=== PATIENT | female | born 1930 | race Caucasian/White ===

== ENCOUNTER → 2016-03-09 | Outpatient (CLI) | payer OTHER ==
[~2016-03-09] MED LIST: ACETAMINOPHEN-H1 TA2 PO; ALENDRONATE SOD70 M1 PO; ANTI-DIARRHEA2 MG PO; ASPIRIN81 M1 PO; BACTRIM DS 8001 TA1 PO; BONIVA150 MG PO; BYETTA10 MCG/0.0 SC; BYETTA5MCG SC; CEFUROXIME AXE250 MG PO; CIPROFLOXACIN500 MG PO; COLCHICINE0.6 MG PO; COUMADIN4 M2 PO; COUMADIN6 M2 PO; Coumadin5 MG PO; DILTIAZEM HYDR180 M2 PO; DIPHENHYDR12.5 MG/5 PO; DOXYCYCLINE100 MG PO; DUONEB 3 MG/3 ML3 M1 INH; ECOTRIN81 M1 PO; ENOXAPARIN80 MG/0.2 SC; GABAPENTIN300 MG PO; GERI-LANTA 355355 ML PO; GLIMEPIRIDE1 MG PO; GLIPIZIDE PO; GUAFENESIN400 MG PO; Glimepiride1 MG PO; HUMALOG100 U/ML SC; IMODIUM2 MG PO; INDOCIN25 MG PO; LASIX20 MG PO; LASIX40 MG PO; LISINOPRIL2.5 MG PO; MAPAP325 MG PO; MELOXICAM15 MG PO; METFO PO; MICRO K10 MEQ PO; MILK OF MA400 MG/5 M PO; MIRALAX POWDER17 G1 PO; MOBIC15 MG PO; MULTI-DAY VITA1 EACH PO; MULTIPLE VITAMI1 CAP PO; MULTIVITAMIN FO1 CAP PO; NEURONTIN300 MG PO; NEXIUM40 MG PO; NITROFURANTOIN100 M3 PO; NORTRIPTYLINE10 MG PO; NOVOLOG 70/30 M10 ML SC; NOVOLOG FLEX100 U/ML SC; NOVOLOG1 UNIT/0.0; NOVOLOG10 ML SC; NOVOLOG100 U/ML; NOVOLOG100 U/ML SC; OMEPRAZOLE20 M2 PO; OSCAL,OYSTER S500 MG PO; OXYGEN NAS; OYSTER CALCIUM1 TA2 PO; OYSTER SHELL 51 EACH PO; OYSTER SHELL C1 EACH PO; Oscal,Oyster S500 MG PO; POLYETHYLENE GL1 PO7 PO; POTASSIUM; PRILOSEC40 MG PO; PRINIVIL2.5 MG PO; Q-DRYL12.5 MG/5 PO; ROBITUSSIN100 MG/5 M PO; SIMVASTATIN20 MG PO; SIMVASTATIN40 MG PO; SYNTHROID,LEV125 MCG PO; SYNTHROID,LEV175 MCG PO; SYNTHROID,LEV200 MCG PO; SYNTHROID,LEVO25 MCG PO; SYNTHROID0.15 MG PO; SYNTHROID25 MCG PO; Synthroid,Lev200 MCG PO; THERAGRAN1 TA2 PO; TYLENOL325 M1 PO; TYLENOL325 M2 PO; VICTOZA 3-PAK6 MG/ML SC; VICTOZA6 MG/ML SC; VITAMIN D32000 I1 PO; VITAMIN D32000 UNI1 PO; WELCHOL3.75 GM/Pa PO; ZOCOR20 MG PO; ZOCOR40 MG PO
== END | disposition home or self-care (01) ==
LOC: CARD 15:57
DX: I48.2 Chronic atrial fibrillation (principal)

== ENCOUNTER → 2018-05-29 | Outpatient (CLI) | payer MEDICARE | END | disposition home or self-care (01) | LOC: ORTHO 01:09 | DX: M17.11 Unilateral primary osteoarthritis, right knee (principal); M25.461 Effusion, right knee ==

== ENCOUNTER 2019-02-09 15:29 | Inpatient (IN) | payer MEDICARE, OTHER ==
[~2019-02-09] VITALS: Ht 160 cm; Wt 81.6 kg
[2019-02-09 15:30] VITALS: BP 82/36
[2019-02-09 15:39] VITALS: BP 90/60
[2019-02-09 16:15] LABS: BILIRUBIN NEGATIVE (NEGATIVE); BLOOD NEGATIVE (NEGATIVE); CLARITY CLEAR (CLEAR); COLOR YELLOW (YELLOW); GLUCOSE NEGATIVE (NEGATIVE); KETONE NEGATIVE (NEGATIVE); LEUKO ESTERASE NEGATIVE (NEGATIVE); NITRITE NEGATIVE (NEGATIVE); PH 5.5 (5.0-9.0); UROBILINOGEN 0.2 E.U./dl (0.2-1.0)
[2019-02-09 16:15] LABS: HEMATOCRIT 33.9 % (37.0-47.0); MEAN CELL VOLUME 90.6 fl (81.0-99.0); MEAN CORPUSCULAR HGB 29.4 pg (27.0-31.0); MEAN CORPUSCULAR HGB CONC 32.4 g/dl (33.0-37.0); MEAN PLATELET VOLUME 9.5 fl (9.6-12.3); PLATELET COUNT AUTOMATED 344 10*3/uL (130-400); RED BLOOD COUNT 3.74 10*6/uL (4.10-5.10); RED CELL DISTRI WIDTH 14.4 % (0-14.5); WHITE BLOOD COUNT 18.8 10*3/uL (4.8-10.8)
[2019-02-09 16:24] LABS: BACTERIA TRACE
[2019-02-09 16:32] LABS: ALBUMIN 3.1 gm/dl (3.1-4.5); CREATININE 2.23 mg/dL (0.55-1.02); POTASSIUM 4.3 mmol/L (3.5-5.1); TOTAL PROTEIN 6.2 gm/dL (6.4-8.2)
[2019-02-09 16:33] LABS: INTERNATIONAL NORM RATIO 5.4 (2.0-3.5)
--- NOTE | 2019-02-09 16:33 | NUR ---
lab calls and pts inr is 5.4. provider made aware.
[2019-02-09 16:46] LABS: PLATELET SUFFICIENCY NORMAL (NORMAL); TOTAL CELLS COUNTED 100 #CELLS
[2019-02-09 17:03] VITALS: BP 89/45
[2019-02-09 18:41] VITALS: BP 101/44
--- NOTE | 2019-02-09 18:41 | NUR ---
PT RESTING IN BED. IN NO ACUTE DISTRESS. SIDERAILS UP X2
--- NOTE | 2019-02-09 20:10 | NUR ---
Time: 2009 A 88 year old FEMALE admitted to 5E under services of KAIN STARR DO. Pt. arrived via bed from ER. Chief complaint: ARF, DIVERTICULITIS, ELEVATED INR. EMANI BURDEN
[2019-02-09 20:20] VITALS: BP 130/95
[2019-02-09] MEDS ORDERED: DILTIAZEM 24HR300 MG PO (22:26)
[2019-02-09] MEDS ORDERED: PEPCID20 MG PO (22:27)
[2019-02-09] MEDS ORDERED: FENOFIBRATE160 MG PO (22:28)
[2019-02-09] MEDS ORDERED: NEURONTIN100 MG PO (22:29)
[2019-02-09] MEDS ORDERED: LEVOTHYROXINE150 MCG PO (22:30)
[2019-02-09] MEDS ORDERED: PANTOPRAZOLE SO40 MG PO (22:39)
[2019-02-09] MEDS ORDERED: COUMADIN3 M1 PO (22:43)
[2019-02-10] VITALS: BP 126/91
[2019-02-10 06:45] LABS: BASO % 0.2 % (0.0-1.0); EOS # 0.2 10*3/uL (0.0-0.4); EOS % 1.5 % (1.0-4.0); HEMATOCRIT 33.5 % (37.0-47.0); HEMOGLOBIN 10.7 g/dl (12.0-16.0); LYMPH # 1.8 10*3/uL (1.3-4.4); LYMPH % 14.6 % (27.0-41.0); MEAN CELL VOLUME 88.9 fl (81.0-99.0); MEAN CORPUSCULAR HGB 28.4 pg (27.0-31.0); MEAN CORPUSCULAR HGB CONC 31.9 g/dl (33.0-37.0); MEAN PLATELET VOLUME 9.4 fl (9.6-12.3); MONO # 0.8 10*3/uL (0.1-1.0); MONO % 6.5 % (3.0-9.0); NEUT # 9.4 10*3/uL (2.3-7.9); NEUT % 76.8 % (47.0-73.0); PLATELET COUNT AUTOMATED 347 10*3/uL (130-400); RED BLOOD COUNT 3.77 10*6/uL (4.10-5.10); RED CELL DISTRI WIDTH 14.4 % (0-14.5); WHITE BLOOD COUNT 12.3 10*3/uL (4.8-10.8)
[2019-02-10 06:50] LABS: ACT PARTIAL THROMBO TIME 64.9 SECONDS (20.0-32.1); INTERNATIONAL NORM RATIO 4.1 (2.0-3.5)
[2019-02-10 07:01] LABS: ALBUMIN 2.7 gm/dl (3.1-4.5); CREATININE 1.81 mg/dL (0.55-1.02); FREE T4 1.46 ng/dl (0.76-1.46); PHOSPHOROUS 2.7 mg/dL (2.5-4.9); POTASSIUM 3.9 mmol/L (3.5-5.1); TOTAL PROTEIN 5.9 gm/dL (6.4-8.2)
[2019-02-10 07:06] LABS: THYROID STIM HORMONE (HS) 0.825 uIU/ml (0.358-4.75)
[2019-02-10 08:00] VITALS: BP 98/54
[2019-02-10 08:13] LABS: VITAMIN D, 25-HYDROXY 46.6 ng/mL (30-100)
[2019-02-10 12:00] VITALS: BP 90/42
--- NOTE | 2019-02-10 13:59 | NUR ---
NOTIFIED REGARDING LOW BP. PT ASYMPTOMATIC.
[2019-02-10 16:11] VITALS: BP 104/85
--- NOTE | 2019-02-10 19:20 | NUR ---
24 HR CHART CHECK COMPLETE
[2019-02-10 20:00] VITALS: BP 128/67
[2019-02-11] VITALS: BP 131/72
[2019-02-11 08:00] VITALS: BP 103/48
[2019-02-11 08:47] LABS: BASO % 0.3 % (0.0-1.0); EOS # 0.2 10*3/uL (0.0-0.4); EOS % 3.1 % (1.0-4.0); HEMOGLOBIN 10.5 g/dl (12.0-16.0); LYMPH # 1.9 10*3/uL (1.3-4.4); LYMPH % 27.6 % (27.0-41.0); MEAN CELL VOLUME 90.4 fl (81.0-99.0); MEAN CORPUSCULAR HGB 28.8 pg (27.0-31.0); MEAN CORPUSCULAR HGB CONC 31.8 g/dl (33.0-37.0); MEAN PLATELET VOLUME 9.4 fl (9.6-12.3); MONO # 0.8 10*3/uL (0.1-1.0); MONO % 11.3 % (3.0-9.0); NEUT # 3.9 10*3/uL (2.3-7.9); NEUT % 57.1 % (47.0-73.0); PLATELET COUNT AUTOMATED 342 10*3/uL (130-400); RED BLOOD COUNT 3.65 10*6/uL (4.10-5.10); RED CELL DISTRI WIDTH 14.3 % (0-14.5); WHITE BLOOD COUNT 6.8 10*3/uL (4.8-10.8)
[2019-02-11 09:02] LABS: ALBUMIN 2.6 gm/dl (3.1-4.5); CREATININE 1.39 mg/dL (0.55-1.02); POTASSIUM 3.7 mmol/L (3.5-5.1); TOTAL PROTEIN 5.5 gm/dL (6.4-8.2)
[2019-02-11 12:00] VITALS: BP 99/73
[2019-02-11 12:27] LABS: INTERNATIONAL NORM RATIO 2.3 (2.0-3.5)
[2019-02-11 16:00] VITALS: BP 134/78
--- NOTE | 2019-02-11 16:00 | NUR ---
Patient resting quietly with no c/o discomfort. Respirations easy and regular. Vital signs stable. No overt distress. AYLIN BEEBE
--- NOTE | 2019-02-11 18:02 | NUR ---
PT TOLERATED SOFT DIET WITHOUT ANY PROBLEMS.
--- NOTE | 2019-02-11 19:07 | NUR ---
PT REFUSED TEDS. AGREED TO WEAR BILATERAL HEEL PROTECTORS. WILL MONITOR.
[2019-02-11 20:00] VITALS: BP 133/81
--- NOTE | 2019-02-11 20:03 | NUR ---
PT'S HR REGISTERING 110S-140S PER AUTO BP CUFF. RN ORDERED STAT EKG-RATE AT THIS TIME 118. NOTIFIED OF ELEVATED HR & PT USUALLY ON 300 MG CARDIZEM PO AT HOME. INSTRUCTED TO ORDER HOME CARDIZEM AND GIVE DOSE NOW.
--- NOTE | 2019-02-11 22:07 | NUR ---
PT REFUSING TO WEAR HEEL PROTECTORS AND/OR DEMETRICE HOSE.
--- NOTE | 2019-02-11 23:40 | NUR ---
IV FLAGYL INITIATED PER ORDER. PT DENIES ANY NEEDS AT PRESENT TIME. WILL MONITOR. CALL LIGHT LEFT IN REACH.
[2019-02-12] VITALS: BP 113/53
--- NOTE | 2019-02-12 01:18 | NUR ---
PT ASSISTED UP TO BATHROOM. PT HAD VERY HARD BOWEL MOVEMENT AND WAS FOUND TRYING TO DIGITALLY DISIMPACT SELF. RN OFFERED PT A DULCOLAX SUPPOSITY. PT AGREED. DULCOLAX SUPPOSITORY GIVEN PER PRN ORDER. PT ASSISTED BACK INTO BED. REPOSITIONED FOR COMFORT. BED LOCKED IN LOW POSITION, BED ALARM INTACT, CALL LIGHT IN REACH. WILL MONITOR.
--- NOTE | 2019-02-12 06:09 | NUR ---
PT AGREEING TO WEAR HEEL PROTECTORS AT THIS TIME. HEEL PROTECTORS APPLIED BILATERALLY. PT PULLED UP & REPOSITIONED IN BED FOR COMFORT. WILL MONITOR. CALL LIGHT IN REACH. BED ALARM INTACT.
--- NOTE | 2019-02-12 06:10 | NUR ---
POLOJOANIE Rios [id number] Please refer to the physician's history and physical for past medical history, comorbid conditions, and allergies. Diagnosis: ACUTE RENAL FAILURE,DIVERICULITIS,ELEVATED INR Jose Angel Score: 19,LOW OR NO RISK WOUND DESCRIPTIONS: Wound Number: 1 Location of the wound: coccyx Type of wound: stage 2 Thickness: Partial Size: 0.7cm x 0.4cm x 0.1cm Tunneling: none Undermining: none Sinus Tract: none Presence of Exudate: Serosanguineous Amount: Light Color: Red Odor: None Periwound Skin Appearance: Erythema Wound edges: approximated Pain (associated with wound): none at time of assessment How does patient state this happened? pt unable to state how this happened Patients bilateral red and blanchable at time of assessment. Edema noted bilaterally. Patient heels are soft to touch. Surface the patient is resting on: Isoflex SKIN PREVENTION RECOMMENDATION: 1. Pressure redistribution support surface as appropriate 2. Elevate heels 3. Remove boots/TEDS every shift and reapply 4. Head of bed 30 degrees as tolerated 5. Assess nutrition and hydration 6. Manage moisture 7. Avoid the use of containment devices while in bed 8. Use absorptive products on surfaces limit layers of linens on bed 9. Turn and reposition every 1-2 hours in bed and every 1 hour in chair as tolerated 10. Weight shifts every 15 minutes while up in chair 11. Offloading with pillows or device to keep heels elevated off bed 12. Monitor skin at least every shift 13. Inspect under medical devices twice a day WOUND TREATMENT RECOMMENDATIONS: Kamilla brooks order to coccyx every 12 hours and prn cleanse with soap and water. Wheelchair cushion when oob. Heel raiser pro boots to bilateral feet while in bed.
[2019-02-12 06:20] LABS: BASO % 0.5 % (0.0-1.0); EOS # 0.2 10*3/uL (0.0-0.4); EOS % 2.5 % (1.0-4.0); HEMATOCRIT 36.4 % (37.0-47.0); HEMOGLOBIN 11.5 g/dl (12.0-16.0); LYMPH # 2.3 10*3/uL (1.3-4.4); LYMPH % 26.2 % (27.0-41.0); MEAN CELL VOLUME 90.5 fl (81.0-99.0); MEAN CORPUSCULAR HGB 28.6 pg (27.0-31.0); MEAN CORPUSCULAR HGB CONC 31.6 g/dl (33.0-37.0); MEAN PLATELET VOLUME 9.3 fl (9.6-12.3); MONO # 0.9 10*3/uL (0.1-1.0); MONO % 10.6 % (3.0-9.0); NEUT # 5.2 10*3/uL (2.3-7.9); NEUT % 59.4 % (47.0-73.0); PLATELET COUNT AUTOMATED 373 10*3/uL (130-400); RED BLOOD COUNT 4.02 10*6/uL (4.10-5.10); RED CELL DISTRI WIDTH 14.4 % (0-14.5); WHITE BLOOD COUNT 8.8 10*3/uL (4.8-10.8)
[2019-02-12 06:32] LABS: ALBUMIN 2.8 gm/dl (3.1-4.5); CREATININE 1.31 mg/dL (0.55-1.02); POTASSIUM 4.1 mmol/L (3.5-5.1)
[2019-02-12 08:00] VITALS: BP 142/85
--- NOTE | 2019-02-12 08:00 | NUR ---
PT RESTING IN BED NO DISTRESS NOTED. WILL MONITOR
--- NOTE | 2019-02-12 08:36 | NUR ---
PHYSICAL THERAPY Screen received pt is admitted from [facility] with diverticulitis, please consult PT if pt has a decline in functiona status from baseline, thank you Skylar Bettencourt PT
--- NOTE | 2019-02-12 08:39 | NUR ---
Dr. Lozano notified of wound care recommendations.
--- NOTE | 2019-02-12 11:16 | NUR ---
SWITCHBOARD OPERATOR ASSISTANT spoke with the patient. Patient is very Hard of Hearing, and does have difficulty communicating if she does not understand what is being asked. Patient was fully aware of where she was today and what the year is currently. Patient stated she wants to return to her home ([facility]) at discharge. SWITCHBOARD OPERATOR ASSISTANT notified [employer] Supervisor Magaly. SWITCHBOARD OPERATOR ASSISTANT will fax updates to [facility]. SWITCHBOARD OPERATOR ASSISTANT left message for RN Hospitalist Coordinator Ariadna. [employer] Supervisor Magaly is aware. -TOBIN Steen
--- NOTE | 2019-02-12 11:40 | NUR ---
HUMIDIFIER MAINTENANCE WORKER faxed updates to [facility]. -SHAYY SteenW
[2019-02-12 12:00] VITALS: BP 123/77
[2019-02-12 16:00] VITALS: BP 133/70
[2019-02-12] MEDS ORDERED: CIPRO500 MG PO (16:28)
[2019-02-12] MEDS ORDERED: FLAGYL500 MG PO (16:28)
--- NOTE | 2019-02-12 17:23 | NUR ---
Nursing screen received and chart reviewed. Patient can benefit from Occupational Therapy d/t sacral fractures. Thank you. Shelia West OTR/L
--- NOTE | 2019-02-12 17:27 | NUR ---
Nursing screen received and chart reviewed. Patient was admitted from [facility] with diverticulosis. If patient has a decline in ADLs from baseline then refer to Occupational Therapy . Thank you. Shelia West OTR/L
--- NOTE | 2019-02-12 18:07 | NUR ---
REPORT CALLED TO [facility] , SPOKE WITH LISSA
--- NOTE | 2019-02-12 19:06 | NUR ---
PT REFUSED DC WOUND PHOTOS
--- NOTE | 2019-02-12 19:48 | NUR ---
EMS HERE TO TRANSPORT PT TO [facility]. ALL BELONGINGS GATHERED AND SENT WITH PT.
--- NOTE | 2019-02-12 19:50 | NUR ---
ARIELLA AT [place] NOTIFIED OF PATIENT'S DEPARTURE FROM [facility] VIA EMS. REPORT ALREADY CALLED TO ARIELLA BY MARQUISE ROSALES.
--- NOTE | 2019-02-12 19:51 | NUR ---
PATIENT'S DAUGHTER, ADORE, CALLED AND UPDATED ON DEPARTURE FROM THIS FACILITY. AWARE PATIENT ON HER WAY TO [facility] VIA EMS AT THIS TIME.
--- NOTE | 2019-02-12 20:01 | NUR ---
PRESCRIPTIONS FOUND ON PATIENT'S PHYSICAL CHART. TRUCK SAFETY INSPECTOR CALLED [facility] TO NOTIFY THEM OF THESE PRESCRIPTIONS. SCRIPTS TO BE FAXED.
== END 2019-02-12 19:48 | disposition home or self-care (01) | DRG 871 ==
LOC: ED 15:29 → 5E 17:24 → EDHOLD 17:24 → 5E 17:47
PROVIDERS: Hospitalist; Internal Medicine; Nurse Practitioner Family; ADMIT Emergency Medicine
DX: A41.9 Sepsis, unspecified organism (principal); E43 Unspecified severe protein-calorie malnutrition; N17.0 Acute kidney failure with tubular necrosis; I50.32 Chronic diastolic (congestive) heart failure; K57.92 Diverticulitis of intestine, part unspecified, without perforation or abscess without bleeding; E87.1 Hypo-osmolality and hyponatremia; I48.92 Unspecified atrial flutter; D68.9 Coagulation defect, unspecified; E66.09 Other obesity due to excess calories; D64.9 Anemia, unspecified; R73.9 Hyperglycemia, unspecified; M19.90 Unspecified osteoarthritis, unspecified site; F03.90 Unspecified dementia, unspecified severity, without behavioral disturbance, psychotic disturbance, mood disturbance, and anxiety; E83.41 Hypermagnesemia; J44.9 Chronic obstructive pulmonary disease, unspecified; Z66 Do not resuscitate; Z51.5 Encounter for palliative care; K21.9 Gastro-esophageal reflux disease without esophagitis; E03.9 Hypothyroidism, unspecified; N18.3 Chronic kidney disease, stage 3 (moderate); I69.328 Other speech and language deficits following cerebral infarction; Z68.31 Body mass index [BMI] 31.0-31.9, adult; Z91.012 Allergy to eggs; Z91.011 Allergy to milk products; Z88.8 Allergy status to other drugs, medicaments and biological substances; Z91.018 Allergy to other foods; Z90.49 Acquired absence of other specified parts of digestive tract; Z90.710 Acquired absence of both cervix and uterus; Z83.3 Family history of diabetes mellitus; Z82.49 Family history of ischemic heart disease and other diseases of the circulatory system; Z82.3 Family history of stroke; Z80.0 Family history of malignant neoplasm of digestive organs; Z86.718 Personal history of other venous thrombosis and embolism; Z79.899 Other long term (current) drug therapy; Z79.01 Long term (current) use of anticoagulants

== ENCOUNTER 2019-05-01 12:39 | Inpatient (IN) | payer MEDICARE, OTHER ==
[~2019-05-01] VITALS: Ht 160 cm; Wt 81.6 kg
[2019-05-01] VITALS (7 sets, daily range): BP systolic 91–111; BP diastolic 48–69
[~2019-05-01 12:39] MED LIST changes: +CIPRO500 MG PO; +COUMADIN3 M1 PO; +DILTIAZEM 24HR300 MG PO; +FENOFIBRATE160 MG PO; +FLAGYL500 MG PO; +LEVOTHYROXINE150 MCG PO; +NEURONTIN100 MG PO; +PANTOPRAZOLE SO40 MG PO; +PEPCID20 MG PO
[2019-05-01 12:58] LABS: HEMATOCRIT 36.8 % (37.0-47.0); HEMOGLOBIN 11.6 g/dl (12.0-16.0); MEAN CELL VOLUME 91.1 fl (81.0-99.0); MEAN CORPUSCULAR HGB 28.7 pg (27.0-31.0); MEAN CORPUSCULAR HGB CONC 31.5 g/dl (33.0-37.0); MEAN PLATELET VOLUME 9.1 fl (9.6-12.3); PLATELET COUNT AUTOMATED 376 10*3/uL (130-400); RED BLOOD COUNT 4.04 10*6/uL (4.10-5.10); RED CELL DISTRI WIDTH 14.6 % (0-14.5); WHITE BLOOD COUNT 15.8 10*3/uL (4.8-10.8)
[2019-05-01 13:09] LABS: ACT PARTIAL THROMBO TIME 34.5 SECONDS (20.0-32.1); INTERNATIONAL NORM RATIO 2.5 (2.0-3.5)
[2019-05-01 13:12] LABS: ALBUMIN 3.2 gm/dl (3.1-4.5); CREATININE 1.74 mg/dL (0.55-1.02); POTASSIUM 3.9 mmol/L (3.5-5.1); TOTAL PROTEIN 6.3 gm/dL (6.4-8.2)
[2019-05-01 13:17] LABS: BASOPHILS 1 % (0-1); TOTAL CELLS COUNTED 100 #CELLS
[2019-05-01 13:18] LABS: PLATELET SUFFICIENCY NORMAL (NORMAL); POLYCHROMASIA SLIGHT
[2019-05-01 13:57] LABS: CLARITY SL CLOUDY (CLEAR); COLOR YELLOW (YELLOW)
[2019-05-01 13:58] LABS: BACTERIA 1+; BILIRUBIN NEGATIVE (NEGATIVE); BLOOD NEGATIVE (NEGATIVE); GLUCOSE NEGATIVE (NEGATIVE); KETONE NEGATIVE (NEGATIVE); LEUKO ESTERASE NEGATIVE (NEGATIVE); NITRITE NEGATIVE (NEGATIVE); PH 7.5 (5.0-9.0); SPECIFIC GRAVITY 1.005 (1.005-1.030); UROBILINOGEN 0.2 E.U./dl (0.2-1.0)
[2019-05-01] MEDS ORDERED: BUMETANIDE1 MG PO (17:55)
[2019-05-01] MEDS ORDERED: VITAMIN B-121000 MC2 PO (17:55)
[2019-05-02] VITALS: BP 92/63
[2019-05-02 06:30] LABS: BASO % 0.4 % (0.0-1.0); EOS # 0.3 10*3/uL (0.0-0.4); EOS % 2.4 % (1.0-4.0); HEMATOCRIT 32.1 % (37.0-47.0); HEMOGLOBIN 10.2 g/dl (12.0-16.0); LYMPH % 19.4 % (27.0-41.0); MEAN CELL VOLUME 88.2 fl (81.0-99.0); MEAN CORPUSCULAR HGB CONC 31.8 g/dl (33.0-37.0); MEAN PLATELET VOLUME 9.4 fl (9.6-12.3); MONO # 0.8 10*3/uL (0.1-1.0); MONO % 7.3 % (3.0-9.0); NEUT # 7.2 10*3/uL (2.3-7.9); NEUT % 70.2 % (47.0-73.0); PLATELET COUNT AUTOMATED 356 10*3/uL (130-400); RED BLOOD COUNT 3.64 10*6/uL (4.10-5.10); RED CELL DISTRI WIDTH 14.6 % (0-14.5); WHITE BLOOD COUNT 10.3 10*3/uL (4.8-10.8)
[2019-05-02 06:41] LABS: ACT PARTIAL THROMBO TIME 41.2 SECONDS (20.0-32.1); INTERNATIONAL NORM RATIO 2.9 (2.0-3.5)
[2019-05-02 07:00] LABS: ALBUMIN 2.7 gm/dl (3.1-4.5); CREATININE 1.44 mg/dL (0.55-1.02); FREE T4 1.53 ng/dl (0.76-1.46); PHOSPHOROUS 2.7 mg/dL (2.5-4.9); TOTAL PROTEIN 5.3 gm/dL (6.4-8.2)
[2019-05-02 07:05] LABS: THYROID STIM HORMONE (HS) 0.442 uIU/ml (0.358-4.75)
[2019-05-02 08:00] VITALS: BP 113/68
[2019-05-02 09:19] VITALS: BP 104/58
[2019-05-02 10:16] LABS: VITAMIN D, 25-HYDROXY 48.8 ng/mL (30-100)
[2019-05-02 12:00] VITALS: BP 120/76
[2019-05-02 16:00] VITALS: BP 124/61
[2019-05-02 20:00] VITALS: BP 131/59
[2019-05-03] VITALS: BP 115/63
[2019-05-03 06:15] LABS: BASO # 0.1 10*3/uL (0.0-0.1); BASO % 0.5 % (0.0-1.0); EOS # 0.3 10*3/uL (0.0-0.4); HEMATOCRIT 33.6 % (37.0-47.0); HEMOGLOBIN 10.5 g/dl (12.0-16.0); LYMPH # 3.3 10*3/uL (1.3-4.4); LYMPH % 29.4 % (27.0-41.0); MEAN CELL VOLUME 90.6 fl (81.0-99.0); MEAN CORPUSCULAR HGB 28.3 pg (27.0-31.0); MEAN CORPUSCULAR HGB CONC 31.3 g/dl (33.0-37.0); MEAN PLATELET VOLUME 9.4 fl (9.6-12.3); MONO # 1.1 10*3/uL (0.1-1.0); MONO % 9.5 % (3.0-9.0); NEUT # 6.5 10*3/uL (2.3-7.9); NEUT % 57.2 % (47.0-73.0); PLATELET COUNT AUTOMATED 346 10*3/uL (130-400); RED BLOOD COUNT 3.71 10*6/uL (4.10-5.10); RED CELL DISTRI WIDTH 14.9 % (0-14.5); WHITE BLOOD COUNT 11.3 10*3/uL (4.8-10.8)
[2019-05-03 08:00] VITALS: BP 139/81
[2019-05-03 12:00] VITALS: BP 135/76
[2019-05-03 16:00] VITALS: BP 122/78
[2019-05-03 20:00] VITALS: BP 129/83
[2019-05-04] VITALS: BP 122/80
[2019-05-04 06:14] LABS: BASO # 0.1 10*3/uL (0.0-0.1); BASO % 0.6 % (0.0-1.0); EOS # 0.3 10*3/uL (0.0-0.4); EOS % 4.3 % (1.0-4.0); HEMATOCRIT 31.2 % (37.0-47.0); HEMOGLOBIN 9.8 g/dl (12.0-16.0); LYMPH # 2.6 10*3/uL (1.3-4.4); LYMPH % 33.1 % (27.0-41.0); MEAN CELL VOLUME 88.9 fl (81.0-99.0); MEAN CORPUSCULAR HGB 27.9 pg (27.0-31.0); MEAN CORPUSCULAR HGB CONC 31.4 g/dl (33.0-37.0); MEAN PLATELET VOLUME 9.7 fl (9.6-12.3); MONO # 0.9 10*3/uL (0.1-1.0); MONO % 11.8 % (3.0-9.0); NEUT # 3.9 10*3/uL (2.3-7.9); NEUT % 49.8 % (47.0-73.0); PLATELET COUNT AUTOMATED 336 10*3/uL (130-400); RED BLOOD COUNT 3.51 10*6/uL (4.10-5.10); WHITE BLOOD COUNT 7.8 10*3/uL (4.8-10.8)
[2019-05-04 06:17] LABS: CREATININE 1.19 mg/dL (0.55-1.02); POTASSIUM 3.6 mmol/L (3.5-5.1)
[2019-05-04 06:23] LABS: INTERNATIONAL NORM RATIO 2.1 (2.0-3.5)
[2019-05-04 08:00] VITALS: BP 127/68
[2019-05-04] MEDS ORDERED: FLAGYL500 MG PO (08:17)
[2019-05-04] MEDS ORDERED: CIPRO250 MG PO (08:17)
[2019-05-04] MEDS ORDERED: NEURONTIN100 MG PO (08:18)
== END 2019-05-04 11:50 | disposition home or self-care (01) | DRG 872 ==
LOC: ED 12:39 → EDHOLD 16:07 → 4E 16:07
PROVIDERS: Emergency Medicine; Internal Medicine; Student in an Organized Health Care Education/Training Program; ADMIT Internal Medicine
DX: A41.9 Sepsis, unspecified organism (principal); E87.1 Hypo-osmolality and hyponatremia; D68.9 Coagulation defect, unspecified; K57.32 Diverticulitis of large intestine without perforation or abscess without bleeding; E44.1 Mild protein-calorie malnutrition; I48.92 Unspecified atrial flutter; I50.9 Heart failure, unspecified; E03.9 Hypothyroidism, unspecified; K21.9 Gastro-esophageal reflux disease without esophagitis; N18.3 Chronic kidney disease, stage 3 (moderate); D64.9 Anemia, unspecified; J44.9 Chronic obstructive pulmonary disease, unspecified; F03.90 Unspecified dementia, unspecified severity, without behavioral disturbance, psychotic disturbance, mood disturbance, and anxiety; M19.90 Unspecified osteoarthritis, unspecified site; G62.9 Polyneuropathy, unspecified; R73.9 Hyperglycemia, unspecified; Z86.718 Personal history of other venous thrombosis and embolism; I69.328 Other speech and language deficits following cerebral infarction; Z90.49 Acquired absence of other specified parts of digestive tract; Z82.49 Family history of ischemic heart disease and other diseases of the circulatory system; Z80.0 Family history of malignant neoplasm of digestive organs; Z83.3 Family history of diabetes mellitus; Z88.8 Allergy status to other drugs, medicaments and biological substances; Z91.018 Allergy to other foods; Z79.899 Other long term (current) drug therapy; Z79.01 Long term (current) use of anticoagulants; Z68.31 Body mass index [BMI] 31.0-31.9, adult

== ENCOUNTER 2020-02-25 13:08 | Emergency (ER) | payer MEDICARE, OTHER ==
[~2020-02-25 13:08] MED LIST changes: +ACETAMINOPHEN650 M5 PO; +ARTHRITIS PAIN100 GM T; +BUMETANIDE1 MG PO; +CIPRO250 MG PO; +CIPROFLOXACIN750 MG PO; -COUMADIN3 M1 PO; +Coumadin2 MG PO; +MIRALAX17 GM PO; +VITAMIN B-121000 MC2 PO; +VITAMIN D350 MC2 PO
== END 2020-02-25 13:40 | disposition other institution (70) ==
LOC: ED 13:08
DX: S81.811A Laceration without foreign body, right lower leg, initial encounter (principal); R41.0 Disorientation, unspecified; J44.9 Chronic obstructive pulmonary disease, unspecified; E11.9 Type 2 diabetes mellitus without complications; I50.9 Heart failure, unspecified; Z88.8 Allergy status to other drugs, medicaments and biological substances; Z91.012 Allergy to eggs; Z91.011 Allergy to milk products; Z91.018 Allergy to other foods; Z79.899 Other long term (current) drug therapy; Z79.01 Long term (current) use of anticoagulants; Z90.49 Acquired absence of other specified parts of digestive tract; Z98.890 Other specified postprocedural states; X58.XXXA Exposure to other specified factors, initial encounter; Y93.89 Activity, other specified; Y92.89 Other specified places as the place of occurrence of the external cause; Y99.8 Other external cause status

== ENCOUNTER → 2020-08-22 | Outpatient (CLI) | payer MEDICARE, OTHER ==
[~2020-08-22] MED LIST changes: +CALCIUM 500 +1 EAC1 PO; +COLACE100 MG PO; +Coumadin3 MG PO; +DOXYCYCLINE MO100 M1 PO; +GERI-LANTA LIQ355 ML PO; +HEMORRHOIDAL CR51 G1 R; +LOPERAMIDE HCL2 MG PO; +PROBIOTIC FORM1 EACH PO; +SINGULAIR10 M1 PO
== END ==
LOC: WOUNDCARE 01:34
PROVIDERS: ATTEND Nurse Practitioner
DX: L89.153 Pressure ulcer of sacral region, stage 3 (principal); N18.30 Chronic kidney disease, stage 3 unspecified; I50.9 Heart failure, unspecified; J44.9 Chronic obstructive pulmonary disease, unspecified; K21.9 Gastro-esophageal reflux disease without esophagitis; I48.92 Unspecified atrial flutter; E03.9 Hypothyroidism, unspecified; G62.9 Polyneuropathy, unspecified; F03.90 Unspecified dementia, unspecified severity, without behavioral disturbance, psychotic disturbance, mood disturbance, and anxiety; Z90.49 Acquired absence of other specified parts of digestive tract; Z86.718 Personal history of other venous thrombosis and embolism

== ENCOUNTER → 2020-09-10 | Outpatient (CLI) | payer MEDICARE, OTHER | LOC: WOUNDCARE 09-08 01:16 | PROVIDERS: ATTEND Nurse Practitioner Primary Care | DX: L89.153 Pressure ulcer of sacral region, stage 3 (principal); I50.9 Heart failure, unspecified; N18.30 Chronic kidney disease, stage 3 unspecified; J44.9 Chronic obstructive pulmonary disease, unspecified; K21.9 Gastro-esophageal reflux disease without esophagitis; E03.9 Hypothyroidism, unspecified; G62.9 Polyneuropathy, unspecified; F03.90 Unspecified dementia, unspecified severity, without behavioral disturbance, psychotic disturbance, mood disturbance, and anxiety; Z86.718 Personal history of other venous thrombosis and embolism ==

== ENCOUNTER 2021-01-22 09:33 | Emergency (ER) | payer MEDICARE, OTHER ==
[~2021-01-22] VITALS: Ht 160 cm; Wt 77.3 kg
[2021-01-22 09:58] LABS: BASO % 0.5 % (0.0-1.0); EOS # 0.1 10*3/uL (0.0-0.4); EOS % 1.9 % (1.0-4.0); HEMATOCRIT 39.6 % (37.0-47.0); LYMPH # 2.4 10*3/uL (1.3-4.4); LYMPH % 38.3 % (27.0-41.0); MEAN CELL VOLUME 86.5 fl (81.0-99.0); MEAN CORPUSCULAR HGB 27.3 pg (27.0-31.0); MEAN CORPUSCULAR HGB CONC 31.6 g/dl (33.0-37.0); MEAN PLATELET VOLUME 9.3 fl (9.6-12.3); MONO # 0.7 10*3/uL (0.1-1.0); MONO % 10.6 % (3.0-9.0); NEUT % 48.5 % (47.0-73.0); PLATELET COUNT AUTOMATED 313 10*3/uL (130-400); RED BLOOD COUNT 4.58 10*6/uL (4.10-5.10); RED CELL DISTRI WIDTH 17.7 % (0-14.5); WHITE BLOOD COUNT 6.2 10*3/uL (4.8-10.8)
[2021-01-22 10:13] LABS: ACT PARTIAL THROMBO TIME 48.5 SECONDS (20.0-32.1)
[2021-01-22 10:17] LABS: ALBUMIN 2.7 gm/dl (3.1-4.5); ALKALINE PHOSPHATASE 94 U/L (45-117); BUN 18 mg/dl (7-24); CHLORIDE 105 mmol/L (98-107); CREATININE 0.98 mg/dL (0.55-1.02); POTASSIUM 4.4 mmol/L (3.5-5.1); SGOT/AST 18 IU/L (3-35); SGPT/ALT 18 U/L (12-78); SODIUM 138 mmol/L (136-145); TOTAL PROTEIN 6.3 gm/dL (6.4-8.2)
[2021-01-22] MEDS ORDERED: Coumadin3 MG PO (10:28)
[2021-01-22] MEDS ORDERED: AQUAPHOR396 GM T (10:29)
[2021-01-22] MEDS ORDERED: IMODIUM A-D2 M2 PO (10:31)
[2021-01-22] MEDS ORDERED: BIOFREEZE118 ML T (10:33)
[2021-01-22] MEDS ORDERED: LEVOTHYROXINE150 MC1 PO (10:37)
== END 2021-01-22 15:00 | disposition home or self-care (01) ==
LOC: ED 09:33
PROVIDERS: Emergency Medicine
DX: I48.91 Unspecified atrial fibrillation (principal); K21.9 Gastro-esophageal reflux disease without esophagitis; E03.9 Hypothyroidism, unspecified; Z86.73 Personal history of transient ischemic attack (TIA), and cerebral infarction without residual deficits; J44.9 Chronic obstructive pulmonary disease, unspecified; N18.30 Chronic kidney disease, stage 3 unspecified; I50.9 Heart failure, unspecified; Z88.8 Allergy status to other drugs, medicaments and biological substances; Z91.018 Allergy to other foods; Z91.012 Allergy to eggs; Z79.899 Other long term (current) drug therapy

== ENCOUNTER 2021-03-19 09:18 | Inpatient (IN) | payer MEDICARE, OTHER ==
[~2021-03-19] VITALS: Wt 74.5 kg
[~2021-03-19 09:18] MED LIST changes: +AQUAPHOR396 GM T; +BIOFREEZE118 ML T; +IMODIUM A-D2 M2 PO; +LEVOTHYROXINE150 MC1 PO
[2021-03-19 09:43] LABS: BASO # 0.1 10*3/uL (0.0-0.1); BASO % 0.7 % (0.0-1.0); EOS # 0.3 10*3/uL (0.0-0.4); HEMATOCRIT 41.8 % (37.0-47.0); LYMPH # 1.9 10*3/uL (1.3-4.4); LYMPH % 19.9 % (27.0-41.0); MEAN CELL VOLUME 85.7 fl (81.0-99.0); MEAN CORPUSCULAR HGB 28.5 pg (27.0-31.0); MEAN CORPUSCULAR HGB CONC 33.3 g/dl (33.0-37.0); MEAN PLATELET VOLUME 8.8 fl (9.6-12.3); MONO # 1.1 10*3/uL (0.1-1.0); MONO % 11.1 % (3.0-9.0); NEUT # 6.1 10*3/uL (2.3-7.9); NEUT % 64.8 % (47.0-73.0); PLATELET COUNT AUTOMATED 479 10*3/uL (130-400); RED BLOOD COUNT 4.88 10*6/uL (4.10-5.10); RED CELL DISTRI WIDTH 17.6 % (0-14.5); WHITE BLOOD COUNT 9.4 10*3/uL (4.8-10.8)
[2021-03-19 09:49] VITALS: BP 130/73
[2021-03-19 10:03] LABS: CREATININE 1.42 mg/dL (0.55-1.02); TOTAL PROTEIN 5.5 gm/dL (6.4-8.2)
[2021-03-19 10:39] LABS: ABG BASE EXCESS 5.9 mmol/L (-2.0-2.0); ARTERIAL BLOOD GAS PH 7.461 (7.35-7.45); ARTERIAL BLOOD GAS PO2 83.9 (80-90)
[2021-03-19 11:30] VITALS: BP 128/83
[2021-03-19 12:00] VITALS: BP 101/75; BP 135/83
[2021-03-19 13:00] VITALS: BP 135/75
[2021-03-19 13:30] LABS: VITAMIN D, 25-HYDROXY 65.9 ng/mL (30-100)
[2021-03-19] MEDS ORDERED: FUROSEMIDE40 MG PO (15:05)
[2021-03-19] MEDS ORDERED: KLOR-CON M1010 ME1 PO (15:08)
[2021-03-19 16:00] VITALS: BP 135/75
[2021-03-19 17:06] LABS: BILIRUBIN Negative (Negative); BLOOD 2+ (Negative); CLARITY Turbid (Clear); COLOR Yellow (Yellow); GLUCOSE Negative (Negative); KETONE Negative (Negative); LEUKO ESTERASE 3+ (Negative); NITRITE Negative (Negative); PH 7.5 (4.5-8.0); UROBILINOGEN 0.2 E.U./dl (0.0-1.0)
[2021-03-19 17:15] LABS: RBC 16-20 rbc/hpf (0-2); WBC TNTC wbc/hpf (0-5)
[2021-03-19 17:16] LABS: BACTERIA 3+; EPITHELIAL CELLS 16-20
[2021-03-19 20:00] VITALS: BP 105/81
[2021-03-20] VITALS: BP 110/97
[2021-03-20 06:39] LABS: BASO # 0.1 10*3/uL (0.0-0.1); BASO % 0.5 % (0.0-1.0); EOS # 0.3 10*3/uL (0.0-0.4); EOS % 2.9 % (1.0-4.0); HEMATOCRIT 42.7 % (37.0-47.0); LYMPH # 1.7 10*3/uL (1.3-4.4); LYMPH % 15.6 % (27.0-41.0); MEAN CELL VOLUME 86.8 fl (81.0-99.0); MEAN CORPUSCULAR HGB 28.7 pg (27.0-31.0); MEAN PLATELET VOLUME 9.1 fl (9.6-12.3); MONO % 9.4 % (3.0-9.0); NEUT # 7.9 10*3/uL (2.3-7.9); NEUT % 71.1 % (47.0-73.0); PLATELET COUNT AUTOMATED 478 10*3/uL (130-400); RED BLOOD COUNT 4.92 10*6/uL (4.10-5.10); RED CELL DISTRI WIDTH 17.5 % (0-14.5); WHITE BLOOD COUNT 11.1 10*3/uL (4.8-10.8)
[2021-03-20 06:53] LABS: ALBUMIN 2.1 gm/dl (3.1-4.5); CREATININE 1.26 mg/dL (0.55-1.02); FREE T4 1.74 ng/dl (0.76-1.46); POTASSIUM 4.1 mmol/L (3.5-5.1); TOTAL PROTEIN 5.5 gm/dL (6.4-8.2)
[2021-03-20 06:58] LABS: THYROID STIM HORMONE (HS) 0.341 uIU/ml (0.358-4.75)
[2021-03-20 08:00] VITALS: BP 133/84
[2021-03-20 09:42] LABS: INTERNATIONAL NORM RATIO 4.6 (2.0-3.5)
[2021-03-20 12:00] VITALS: BP 102/70
[2021-03-20 16:00] VITALS: BP 129/90
[2021-03-20 20:00] VITALS: BP 117/60
[2021-03-21] VITALS: BP 114/83
[2021-03-21 06:49] LABS: BASO % 0.3 % (0.0-1.0); EOS # 0.2 10*3/uL (0.0-0.4); EOS % 2.1 % (1.0-4.0); HEMATOCRIT 41.1 % (37.0-47.0); LYMPH # 1.8 10*3/uL (1.3-4.4); LYMPH % 15.4 % (27.0-41.0); MEAN CELL VOLUME 86.5 fl (81.0-99.0); MEAN CORPUSCULAR HGB 28.8 pg (27.0-31.0); MEAN CORPUSCULAR HGB CONC 33.3 g/dl (33.0-37.0); MEAN PLATELET VOLUME 9.3 fl (9.6-12.3); MONO # 1.5 10*3/uL (0.1-1.0); MONO % 12.8 % (3.0-9.0); NEUT # 7.9 10*3/uL (2.3-7.9); NEUT % 68.9 % (47.0-73.0); PLATELET COUNT AUTOMATED 508 10*3/uL (130-400); RED BLOOD COUNT 4.75 10*6/uL (4.10-5.10); RED CELL DISTRI WIDTH 17.8 % (0-14.5); WHITE BLOOD COUNT 11.5 10*3/uL (4.8-10.8)
[2021-03-21 07:05] LABS: INTERNATIONAL NORM RATIO 3.4 (2.0-3.5)
[2021-03-21 07:09] LABS: CREATININE 1.13 mg/dL (0.55-1.02); TOTAL PROTEIN 5.5 gm/dL (6.4-8.2)
[2021-03-21 08:00] VITALS: BP 128/79
[2021-03-21 12:00] VITALS: BP 133/99
[2021-03-21 16:00] VITALS: BP 128/85
[2021-03-21 20:00] VITALS: BP 123/77
[2021-03-22] VITALS: BP 92/42
[2021-03-22 06:33] LABS: BASO % 0.3 % (0.0-1.0); EOS # 0.2 10*3/uL (0.0-0.4); EOS % 1.6 % (1.0-4.0); HEMATOCRIT 39.5 % (37.0-47.0); LYMPH # 1.4 10*3/uL (1.3-4.4); LYMPH % 11.9 % (27.0-41.0); MEAN CELL VOLUME 86.1 fl (81.0-99.0); MEAN CORPUSCULAR HGB 28.5 pg (27.0-31.0); MEAN CORPUSCULAR HGB CONC 33.2 g/dl (33.0-37.0); MEAN PLATELET VOLUME 9.1 fl (9.6-12.3); MONO # 1.2 10*3/uL (0.1-1.0); MONO % 10.4 % (3.0-9.0); NEUT % 75.1 % (47.0-73.0); PLATELET COUNT AUTOMATED 473 10*3/uL (130-400); RED BLOOD COUNT 4.59 10*6/uL (4.10-5.10); RED CELL DISTRI WIDTH 18.1 % (0-14.5); WHITE BLOOD COUNT 11.9 10*3/uL (4.8-10.8)
[2021-03-22 06:38] LABS: INTERNATIONAL NORM RATIO 3.1 (2.0-3.5)
[2021-03-22 06:47] LABS: ALKALINE PHOSPHATASE 145 U/L (45-117); BUN 34 mg/dl (7-24); CHLORIDE 112 mmol/L (98-107); CREATININE 0.91 mg/dL (0.55-1.02); POTASSIUM 3.5 mmol/L (3.5-5.1); SGOT/AST 17 IU/L (3-35); SGPT/ALT 16 U/L (12-78); SODIUM 146 mmol/L (136-145); TOTAL PROTEIN 5.3 gm/dL (6.4-8.2)
[2021-03-22 08:00] VITALS: BP 133/88
[2021-03-22 12:00] VITALS: BP 114/76
[2021-03-22 16:00] VITALS: BP 98/61
[2021-03-22 20:00] VITALS: BP 149/93
[2021-03-23] VITALS: BP 122/86
[2021-03-23 06:53] LABS: BASO % 0.2 % (0.0-1.0); EOS # 0.1 10*3/uL (0.0-0.4); EOS % 0.9 % (1.0-4.0); HEMATOCRIT 39.1 % (37.0-47.0); LYMPH # 1.8 10*3/uL (1.3-4.4); MEAN CELL VOLUME 87.5 fl (81.0-99.0); MEAN CORPUSCULAR HGB 28.6 pg (27.0-31.0); MEAN CORPUSCULAR HGB CONC 32.7 g/dl (33.0-37.0); MEAN PLATELET VOLUME 9.5 fl (9.6-12.3); MONO # 1.4 10*3/uL (0.1-1.0); MONO % 10.4 % (3.0-9.0); NEUT # 9.7 10*3/uL (2.3-7.9); PLATELET COUNT AUTOMATED 459 10*3/uL (130-400); RED BLOOD COUNT 4.47 10*6/uL (4.10-5.10); RED CELL DISTRI WIDTH 18.6 % (0-14.5); WHITE BLOOD COUNT 13.2 10*3/uL (4.8-10.8)
[2021-03-23 07:04] LABS: INTERNATIONAL NORM RATIO 3.1 (2.0-3.5)
[2021-03-23 07:22] LABS: ALBUMIN 1.8 gm/dl (3.1-4.5); BUN 30 mg/dl (7-24); CHLORIDE 117 mmol/L (98-107); POTASSIUM 3.3 mmol/L (3.5-5.1); SGOT/AST 22 IU/L (3-35); SGPT/ALT 16 U/L (12-78); SODIUM 152 mmol/L (136-145)
[2021-03-23 07:26] LABS: ALKALINE PHOSPHATASE 117 U/L (45-117); CREATININE 0.78 mg/dL (0.55-1.02); TOTAL PROTEIN 5.1 gm/dL (6.4-8.2)
[2021-03-23 08:00] VITALS: BP 120/80
[2021-03-23 12:00] VITALS: BP 128/66
[2021-03-23 16:00] VITALS: BP 127/76
[2021-03-24] MEDS ORDERED: MORPHINE S10 MG/5 M2 PO ×2 (14:48)
[2021-03-24] MEDS ORDERED: ATIVAN ORAL C2 MG/ML PO (14:48)
[2021-03-24] MEDS ORDERED: HYOSCYAMINE0.125 M2 SL (14:48)
== END 2021-03-23 17:26 | disposition hospice, inpatient (51) | DRG 291 ==
LOC: ED 09:18 → 5E 11:01 → EDHOLD 11:01 → 5E 11:39
PROVIDERS: Emergency Medicine; Family Medicine; Internal Medicine; ADMIT Internal Medicine; ATTEND Internal Medicine
PROC: 5A09357 Assistance with Respiratory Ventilation, Less than 24 Consecutive Hours, Continuous Positive Airway Pressure (ICD-10-PCS; principal; 2021-03-19)
DX: I50.31 Acute diastolic (congestive) heart failure (principal); J96.01 Acute respiratory failure with hypoxia; G93.41 Metabolic encephalopathy; N17.0 Acute kidney failure with tubular necrosis; E43 Unspecified severe protein-calorie malnutrition; E87.1 Hypo-osmolality and hyponatremia; I48.92 Unspecified atrial flutter; N39.0 Urinary tract infection, site not specified; Z20.822 Contact with and (suspected) exposure to COVID-19; R73.9 Hyperglycemia, unspecified; E83.52 Hypercalcemia; J44.9 Chronic obstructive pulmonary disease, unspecified; K21.9 Gastro-esophageal reflux disease without esophagitis; N18.32 Chronic kidney disease, stage 3b; R13.10 Dysphagia, unspecified; Z66 Do not resuscitate; Z51.5 Encounter for palliative care; Z86.73 Personal history of transient ischemic attack (TIA), and cerebral infarction without residual deficits; Z91.012 Allergy to eggs; Z91.011 Allergy to milk products; Z88.8 Allergy status to other drugs, medicaments and biological substances; Z79.899 Other long term (current) drug therapy; Z90.49 Acquired absence of other specified parts of digestive tract; Z79.1 Long term (current) use of non-steroidal anti-inflammatories (NSAID); Z79.01 Long term (current) use of anticoagulants

== ENCOUNTER 2021-03-23 17:45 | Inpatient (IN) | payer OTHER, MEDICARE ==
[~2021-03-23] VITALS: Ht 160 cm; Wt 68.1 kg
[2021-03-23 17:45] VITALS: BP 127/76
[~2021-03-23 17:45] MED LIST changes: +FUROSEMIDE40 MG PO; +KLOR-CON M1010 ME1 PO
[2021-03-23 20:00] VITALS: BP 121/75
[2021-03-24 08:00] VITALS: BP 118/76
[2021-03-24 12:00] VITALS: BP 130/60
[2021-03-24] MEDS ORDERED: MORPHINE S10 MG/5 M2 PO ×2 (14:48)
[2021-03-24] MEDS ORDERED: ATIVAN ORAL C2 MG/ML PO (14:48)
[2021-03-24] MEDS ORDERED: HYOSCYAMINE0.125 M2 SL (14:48)
[2021-03-24 16:00] VITALS: BP 130/79
== END 2021-03-24 20:17 | disposition hospice, home (50) | DRG 189 ==
LOC: 5E 17:45
PROVIDERS: ADMIT Family Medicine; ATTEND Family Medicine
DX: J96.01 Acute respiratory failure with hypoxia (principal); N17.0 Acute kidney failure with tubular necrosis; E43 Unspecified severe protein-calorie malnutrition; G93.41 Metabolic encephalopathy; E87.1 Hypo-osmolality and hyponatremia; I48.92 Unspecified atrial flutter; I50.9 Heart failure, unspecified; Z66 Do not resuscitate; Z51.5 Encounter for palliative care; R73.03 Prediabetes; M19.90 Unspecified osteoarthritis, unspecified site; E83.52 Hypercalcemia; J44.9 Chronic obstructive pulmonary disease, unspecified; N18.30 Chronic kidney disease, stage 3 unspecified; R73.9 Hyperglycemia, unspecified